=== PATIENT | female | born 1975 | race Caucasian/White ===

== ENCOUNTER 2025-01-02 19:25 | Emergency (ER) | payer BC, SELFPAY ==
[2025-01-02 19:27] VITALS: BP 128/90
--- NOTE | 2025-01-02 19:48 | ED.GENMED ---
History of Present Illness
General
Chief Complaint: Abdominal Pain
Source: patient
Exam Limitations: none
Time Seen by Provider: 01/02/25 19:31
Nursing documentation reviewed up to this point in time: agreed with
History of Present Illness
History of Present Illness:
Patient presents to ED for an evaluation after seeing blood with urination over the past 6 days. Shortly after seeing blood, patient also started having 'stomach bug' symptoms, similar to multiple for members, consisting of multiple vomiting and
diarrhea episodes. Patient was evaluated by her primary care physician and urine study has been ordered. Unfortunately, patient has been experiencing persistent left-sided abdominal pain, prompting evaluation ED. Denies back pain. Denies
difficulty with urination. Denies pain with urination. Denies fever or chills. Patient states that her GI symptoms have mostly resolved. Denies family history of kidney stones. Patient has had blood with urination in the past, treated with
antibiotics for UTI.
Past History
Past History
ED Past Surgical History: Gynecological
Review of Systems
Review of Systems
Allergies reviewed?: Yes
All Other Systems: ROS reviewed and negative except as documented in HPI and ROS
Constitutional: Reports no symptoms; Denies fever or chills
Respiratory: Reports no symptoms
Cardiac: Reports no symptoms
ABD/GI: Reports abdominal pain, vomiting and diarrhea
: Reports bleeding; Denies dysuria, frequency, flank pain or difficulty voiding
Musculoskeletal: Reports no symptoms; Denies back pain
Skin: Reports no symptoms
Neurological: Reports no symptoms
Phy Exam
Physical Exam
Physical Exam:
Physical Exam
General: no apparent distress, not acutely ill. afebrile.
Head: nc/at. eomi
Neck: supple. normal range of motion.
Heart: s1/s2 regular rate and rhythm, no murmur.
Lungs: no acute respiratory distress. clear bilaterally
Abdomen: normal bowel sounds. not tender. no distention
Neuro: alert and oriented. no focal neurological deficits
Skin: no rash
Psychiatric: well kept. interactive and cooperative
Extremities: no edema. no calf tenderness.
Course
Orders/Labs/Results
Orders:
Orders
01/02/25 19:48
0.9% Sodium Chloride 1000 ml [Nss] 1,000 ml IV BOLUS
Ketorolac [Toradol] 15 mg IV NOW STA
Test Result ONCE
01/02/25 19:55
CT Abd/pel Without Iv Or Oral Urgent
Comment:
Reason For Exam: LLQ/flank pain w hematuria
Basic Metabolic Panel Urgent
Beta HCG Quantitative Urgent
Comment: ADD ON
Complete Blood Count/With Diff Urgent
HCG, Serum Qualitative Screen Urgent
Urinalysis Reflex To Culture Urgent
Date Specimen was Collected: 01/02/25
Time Specimen was Collected: 19:51
Urine Microscopic Reflex Cult Urgent
Urine Culture Urgent
AMAURY Source: U
Specimen Description:
Date Specimen was Collected: 01/02/25
Time Specimen was Collected: 19:51
01/02/25 20:48
Add On- LAB Urgent
Tests Added?: serum quantitative
01/02/25 21:42
Cefdinir [Omnicef] 300 mg PO NOW STA
Abnormal Lab Results
01/02/25
19:55
MPV 10.6 H fL
(7.4-10.4)
Absolute Lymphs (auto) 0.7 L 10^3/uL
(1.2-3.4)
Neutrophils % 78.6 H %
(42.2-75.2)
Lymphocytes % 10.6 L %
(20.5-51.1)
Monocytes % 9.9 H %
(1.7-9.3)
BUN 22 H mg/dl
(7-17)
Glucose 131 H mg/dl
(70-99)
Urine Ketones 3+ A
(Negative)
Ur Occult Blood Reflex 4+ A
(Negative)
Leukocyte Esterase Rfl 2+ A
(Negative)
Urine RBC 7-10 A /HPF
(0-2)
Urine WBC (Reflex) 26-30 A /HPF
(0-5)
Urine Bacteria (Reflex) Many A
(Negative)
Urine Albumin (Reflex) 2+ A
(Neg - Trace)
01/02/25 19:55
01/02/25 19:55
Vital Signs
Initial and Last Documented VS:
Initial Vital Signs
Temp Pulse Resp BP Pulse Ox
98.4 F 85 20 128/90 95
01/02/25 19:27 01/02/25 19:27 01/02/25 19:27 01/02/25 19:27 01/02/25 19:27
Last Documented Vital Signs
Temp Pulse Resp BP Pulse Ox
98.4 F 76 14 122/80 98
01/02/25 19:27 01/02/25 21:48 01/02/25 21:48 01/02/25 21:48 01/02/25 21:48
MDM/Problems Addressed
MDM/Problems Addressed:
CT abdomen pelvis report reviewed and discussed with patient.
Patient will be started on Omnicef, for likely UTI as etiology for her hematuria. Nonspecific abdominal pain, likely multifactorial, including UTI along with recent GI infection. Advised PCP follow-up as an outpatient, or return to ED with
worsening symptoms, i.e. fever/worsening pain/vomiting.
*Critical Care Note
Total Time (30-74mins, 75-104mins- exclusive of procedures): Not Applicable
ED Attending Note
-
Portions of this chart may have been created with voice recognition software.� Occasional wrong word or��sound alike� substitutions may have occurred due to the inherent limitations of voice recognition software.
Discharge Plan
Departure
Patient Disposition: Home (Routine Discharge)
Date of Disposition: 01/02/25
Time of Disposition: 21:43
Patient with high blood pressure during this ER visit?: Yes
Discharge Problem:
UTI (urinary tract infection)
Instructions: Urinary tract infections in adults
Prescriptions:
New
cefdinir 300 mg capsule
300 mg PO BID Qty: 13 0RF
No Action
Excedrin Tension Headache 500-65 mg Tablet
2 tab PO Q8HPRN PRN (Reason: head ache)
gabapentin 300 mg Capsule
300 mg PO BIDPRN PRN (Reason: neck pain)
cholecalciferol (vitamin D3) [Vitamin D3] 25 mcg (1,000 unit) Tablet
50 mcg PO DAILY
ibuprofen 200 mg tablet
400 mg PO Q6HPRN PRN (Reason: mild pain)
estradiol 0.05 mg/24 hr Patch Semiweekly
1 patch TRANSDERMAL MOTH
Referrals:
Lola Cohen MD [Family Provider] -
Activity Restrictions/Additional Instructions:
As discussed, please follow-up with your primary care physician for further evaluation and treatment. Please return to ED with worsening symptoms, i.e. fever/worsening pain/vomiting/inability to urinate. Your prescription has been sent
electronically to [facility] pharmacy in [place].
Interventions
Interventions:
*Risk Screen - Suicide Last Done: 01/02/25 19:27
*General Assessment Last Done: 01/02/25 19:27
*Neglect/Abuse Screening Last Done: 01/02/25 19:27
*ED- Fall Risk Assessment Last Done: 01/02/25 21:54
*Nursing Disposition Last Done: 01/02/25 21:54
DC-Eqywal-Atngzwybjz Assessment Last Done: 01/02/25 20:34
Discharge Date and Time
Discharge Date/Time: 01/02/25 22:02
Print Language: KOSOVAN
[2025-01-02] MEDS: NSS 1000 IV (19:52)
[2025-01-02] MEDS: TORADOL 15 MG IV (19:53)
[2025-01-02 20:24] LABS: % Basophils 0.2 % (0-2); % Eosinophils 0.5 % (0-6); % Immature Granulocytes 0.2 % (0-0.5); % Lymphocytes 10.6 % (20.5-51.1); % Monocytes 9.9 % (1.7-9.3); % Neutrophils 78.6 % (42.2-75.2); Absolute Lymphocytes 0.7 10^3/uL (1.2-3.4); Absolute Monocytes 0.6 10^3/uL (0.1-0.6); Hematocrit 40.1 % (37.0-47.0); Hemoglobin 13.5 g/dL (12.0-16.0); Mean Corp Hgb Conc. 33.7 g/dL (33.0-37.0); Mean Corpuscular Hgb 29.9 pg (27.0-31.0); Mean Corpuscular Volume 88.7 fL (81.0-99.0); Mean Platelet Volume 10.6 fL (7.4-10.4); Nucleated Red Blood Cells % 0 %; Platelet Count 188 10^3/uL (130-400); Red Blood Cell Count 4.52 10^6/uL (4.20-5.40); Red Cell Dist. Width 13.8 % (11.5-14.5); White Blood Cell Count 6.4 10^3/uL (4.8-10.8)
[2025-01-02 20:25] LABS: Urine Albumin 2+ (Neg - Trace); Urine Bilirubin Negative (Negative); Urine Character Slightly Cloudy (Clear); Urine Color Yellow; Urine Glucose Negative (Negative); Urine Ketone 3+ (Negative); Urine Leukocyte 2+ (Negative); Urine Nitrite Negative (Negative); Urine Occult Blood 4+ (Negative); Urine Urobilinogen Negative (Neg - 1+)
[2025-01-02 20:28] LABS: Blood Urea Nitrogen 22 mg/dl (7-17); Carbon Dioxide 25 mmol/L (22-30); Chloride 101 mmol/L (98-107); Glucose 131 mg/dl (70-99); Potassium 3.6 mmol/L (3.5-5.1); Sodium 135 mmol/L (135-145); eGFR > 60.00
[2025-01-02 20:32] LABS: Urine Mucus Moderate
[2025-01-02 20:33] LABS: Urine Calcium Oxalate Crystals Present
[2025-01-02 20:34] LABS: Urine Bacteria Many (Negative); Urine White Cell 26-30 /HPF (0-5)
[2025-01-02 20:47] LABS: HCG, Serum Qualitative Screen Positive
[2025-01-02 21:21] LABS: Beta HCG Quantitative 5.74 mIU/ml
[2025-01-02] MEDS: OMNICEF 300 MG PO (21:46)
[2025-01-02 21:48] VITALS: BP 122/80
== END 2025-01-02 22:02 | disposition home or self-care (01) ==
LOC: EMR 19:25
PROVIDERS: EMERGENCY PHYSICIAN Emergency Medicine; FAMILY PHYSICIAN Internal Medicine
DX: N39.0 Urinary tract infection, site not specified (principal); R10.9 Unspecified abdominal pain
CPT/HCPCS: 96374; 96361; 99284; 74176; 80048; 81003; 81015; 84702; 84703; 85025; 87086

== ENCOUNTER 2025-01-04 05:50 | Inpatient (IN) | payer BC, SELFPAY ==
[2025-01-04] VITALS (9 sets, daily range): BP systolic 100–126; BP diastolic 62–77; BMI 19.7; BMI 19.8
[2025-01-04 02:28] LABS: % Basophils 0.3 % (0-2); % Eosinophils 0.1 % (0-6); % Immature Granulocytes 0.3 % (0-0.5); % Lymphocytes 11.4 % (20.5-51.1); % Monocytes 10.3 % (1.7-9.3); % Neutrophils 77.6 % (42.2-75.2); Absolute Lymphocytes 0.8 10^3/uL (1.2-3.4); Absolute Monocytes 0.7 10^3/uL (0.1-0.6); Absolute Neutrophils 5.3 10^3/uL (1.4-6.5); Hematocrit 36.8 % (37.0-47.0); Hemoglobin 12.5 g/dL (12.0-16.0); Mean Corpuscular Hgb 30.3 pg (27.0-31.0); Mean Corpuscular Volume 89.3 fL (81.0-99.0); Mean Platelet Volume 10.5 fL (7.4-10.4); Nucleated Red Blood Cells % 0 %; Platelet Count 163 10^3/uL (130-400); Red Blood Cell Count 4.12 10^6/uL (4.20-5.40); Red Cell Dist. Width 13.8 % (11.5-14.5); White Blood Cell Count 6.9 10^3/uL (4.8-10.8)
[2025-01-04 02:47] LABS: Lactic Acid 0.7 mmol/L (0.7-2.0)
[2025-01-04 03:13] LABS: ALT (SGPT) 49 U/L (0-35); AST (SGOT) 78 U/L (14-36); Albumin 3.8 g/dl (3.5-5.0); Alkaline Phosphatase 77 U/L (38-126); Blood Urea Nitrogen 17 mg/dl (7-17); Calcium 8.7 mg/dl (8.4-10.2); Carbon Dioxide 26 mmol/L (22-30); Chloride 104 mmol/L (98-107); Glucose 121 mg/dl (70-99); Potassium 4.3 mmol/L (3.5-5.1); Sodium 138 mmol/L (135-145); Total Bilirubin 0.8 mg/dl (0.2-1.3); Total Protein 6.6 g/dl (6.3-8.2); eGFR > 60.00
[2025-01-04 04:00] LABS: Urine Albumin 2+ (Neg - Trace); Urine Bilirubin Negative (Negative); Urine Character Slightly Cloudy (Clear); Urine Color Yellow; Urine Glucose Negative (Negative); Urine Ketone Negative (Negative); Urine Leukocyte 3+ (Negative); Urine Nitrite Negative (Negative); Urine Occult Blood 4+ (Negative); Urine Urobilinogen Negative (Neg - 1+)
[2025-01-04 04:27] LABS: Urine Red Blood Cell 21-25 /HPF (0-2); Urine Squamous Cell >30 /LPF (Few); Urine White Cell >100 /HPF (0-5)
[2025-01-04 04:28] LABS: Urine Bacteria Moderate (Negative)
--- NOTE | 2025-01-04 05:08 | ED.GENMED ---
History of Present Illness
General
Chief Complaint: Urinary Symptoms
Source: previous hospital records (ED visit just 2 days ago, left-sided abdominal and flank pain, 6-day history of hematuria. Found to have UTI, concern for pyelonephritis. Discharged to home with prescription for cefdinir)
Exam Limitations: none
Time Seen by Provider: 01/04/25 04:47
Nursing documentation reviewed up to this point in time: agreed with
History of Present Illness
History of Present Illness:
This is a 49-year-old woman with no significant past medical history evaluated in this ED 2 days ago with complaints of 6-day history of hematuria and also noted left-sided abdominal, left flank pain. Unremarkable laboratory studies. Urinalysis
suspicious for UTI.
CT abdomen pelvis showing bilateral small nephrolithiasis but no hydronephrosis, no perinephric stranding.
She returns tonight with complaints of acute onset of fever this evening with Tmax of 102 �F. She does continue with some left flank pain believes it has been mildly improved. No diarrhea, no nausea nor vomiting. She took ibuprofen at home.
Past History
Past History
ED Past Surgical History: Gynecological
Phy Exam
Physical Exam
Physical Exam:
GENERAL: 49-year-old woman appears her stated age, awake and alert, pleasant, appears in no acute distress.
EYE: anicteric
NECK: Supple, nontender, no meningismus, no significant adenopathy.
ENT: oral mucosa is moist. No rhinorrhea.
CARDIAC: Regular rate and rhythm. no murmur.
LUNGS: Clear breath sounds bilaterally, no acute respiratory distress, no wheezes/rales/rhonchi
ABDOMEN: Soft, nondistended, without focal tenderness, no r/g, moderate left CVA tenderness with percussion. Normoactive BS.
NEUROLOGICAL: Alert and oriented x3, no focal neuro deficits. Gait is steady.
SKIN: Warm and dry, normal color, skin intact. No rash.
MUSCULOSKELETAL: No C/C/E. peripheral pulses are full and equal b/l. No palpable tenderness.
PSYCH: Normal and appropriate interaction.
Course
Orders/Labs/Results
Orders:
Orders
01/04/25 02:15
Complete Blood Count/With Diff Urgent
Comprehensive Metabolic Panel Urgent
Lactic Acid Urgent
Blood Culture Urgent
AMAURY Source: Blood/Venous
Specimen Description:
Date Specimen was Collected: 01/04/25
Time Specimen was Collected: 01:59
01/04/25 03:46
Urinalysis Reflex To Culture Urgent
Date Specimen was Collected: 01/04/25
Time Specimen was Collected: 01:59
Urine Microscopic Reflex Cult Urgent
Urine Culture Urgent
AMAURY Source: U
Specimen Description:
Date Specimen was Collected: 01/04/25
Time Specimen was Collected: 01:59
01/04/25 05:00
0.9% Sodium Chloride 1000 ml [Nss] 1,000 ml IV BOLUS
01/04/25 05:08
LevoFLOXacin 500 MG/100 ML [Levaquin] 500 mg in 100 ml IV NOW
01/04/25 05:34
Admit/Transfer Patient As Directed
Co-Sign Provider:
Level of Care: Inpatient admission
Assign to:: Medical/Surgical
Physician / Group: Leighton
Diagnosis: Pyelonephritis
Reason for Hospitalization: Pyelonephritis
Expected length of stay greater than two midnights?: Yes
ELOS- Estimated Length of Stay in days: 2
I certify the patient meets the requirements for IP care: Yes
PRN Pain Medication Management As Directed
May give lesser potent ordered pain med per pt: Yes
preference::
Protocol:: Medication orders for pain may be administered in a
manner that supports deferring to patient preference
when the pt is:
- Requesting an ordered lesser potent pain medication.
Least to most potent pain medications are defined
as: acetaminophen < NSAID < tramadol < opioids
(morphine, oxycodone, hydromorphone).
- Requesting a lesser dose of the same medication IF
ORDERED.
- Requesting a less intrusive route of administration
if both routes are prescribed by the provider (PO <
IV).
01/04/25 05:35
Code Status As Directed
Resuscitation Status: Full Code
Abnormal Lab Results
01/04/25 01/04/25
02:15 03:46
RBC 4.12 L 10^6/uL
(4.20-5.40)
Hct 36.8 L %
(37.0-47.0)
MPV 10.5 H fL
(7.4-10.4)
Absolute Lymphs (auto) 0.8 L 10^3/uL
(1.2-3.4)
Absolute Monos (auto) 0.7 H 10^3/uL
(0.1-0.6)
Neutrophils % 77.6 H %
(42.2-75.2)
Lymphocytes % 11.4 L %
(20.5-51.1)
Monocytes % 10.3 H %
(1.7-9.3)
Glucose 121 H mg/dl
(70-99)
AST 78 H U/L
(14-36)
ALT 49 H U/L
(0-35)
Ur Occult Blood Reflex 4+ A
(Negative)
Leukocyte Esterase Rfl 3+ A
(Negative)
Urine RBC 21-25 A /HPF
(0-2)
Urine WBC (Reflex) >100 A /HPF
(0-5)
Urine Bacteria (Reflex) Moderate A
(Negative)
Urine Albumin (Reflex) 2+ A
(Neg - Trace)
01/04/25 02:15
01/04/25 02:15
Vital Signs
Initial and Last Documented VS:
Initial Vital Signs
Temp Pulse Resp BP Pulse Ox
99.4 F 79 20 109/76 98
01/04/25 01:48 01/04/25 01:48 01/04/25 01:48 01/04/25 01:48 01/04/25 01:48
Last Documented Vital Signs
Temp Pulse Resp BP Pulse Ox
98.7 F 63 18 118/76 98
01/04/25 03:46 01/04/25 03:46 01/04/25 03:46 01/04/25 06:12 01/04/25 06:16
MDM/Problems Addressed
Differential Diagnosis Includes:
Significant concern for continued pyelonephritis and at this point has failed outpatient antibiotics.
With fever concern for bacteremia/sepsis.
Thus far labs are unremarkable, reassuring with normal white blood cell count, normal lactic acid. Normal renal function.
LFTs minimally elevated, no previous LFTs to compare. Reassuring that she has had no right upper quadrant tenderness.
Urinalysis although contaminated specimen continues to show moderate bacteria and now has greater than 100 WBCs, concerning for UTI and with continued left flank pain/moderate CVA tenderness on the left concern for continued pyelonephritis.
Blood cultures are pending.
Urine culture from January 02 is pending as well.
Will plan to admit to hospitalist service, initiate IV fluids and will initiate IV antibiotics. Due to concern for failure of third-generation cephalosporin, will initiate IV Levaquin.
*Pulse Oximetry
Patient hypoxic: no
*Critical Care Note
Total Time (30-74mins, 75-104mins- exclusive of procedures): Not Applicable
ED Attending Note
-
Portions of this chart may have been created with voice recognition software.� Occasional wrong word or��sound alike� substitutions may have occurred due to the inherent limitations of voice recognition software.
Discharge Plan
Departure
Patient Disposition: Admit
Date of Disposition: 01/04/25
Time of Disposition: 05:16
Admit to: Med/Surg
Admit to doctor: Leighton
Presentation/result/management discussed w/ accepting MD/DO: Hospitalist
Condition: Fair
Discharge Problem:
Acute pyelonephritis, Fever rule out sepsis
Interventions
Interventions:
*Risk Screen - Suicide Last Done: 01/04/25 01:48
*General Assessment Last Done: 01/04/25 01:48
*Neglect/Abuse Screening Last Done: 01/04/25 01:48
*ED- Fall Risk Assessment Last Done: 01/04/25 01:48
*ED COVID-19 Vaccine History Last Done: 01/04/25 01:48
ED-Female Genitourinary Assessment Last Done: 01/04/25 03:46
[2025-01-04] MEDS: NSS 1000 IV ×3 (05:13→18:10)
[2025-01-04] MEDS: LEVAQUIN 100 IV (05:14)
--- NOTE | 2025-01-04 05:37 | HPS.HSE ---
Family Physician
-
Family Physician: Lola Cohen
Chief Complaint
-
Fever, Flank Pain
History of Present Illness
Patient is a 49y F with no significant PMH who presents to ED complaining of flank pain and fever. Patient states that she started with dysuria and bloody urine about one week ago. Since that time, she (and multiple family members) developed GI
illness with N/V/D. Once this improved, patient noted persistent complaints and she presented to the ED here on 01/02/25. She was diagnosed with UTI and discharged on cefdinir which she has taken as prescribed.
This evening, patient noted increased pain across the back - L > R - and fever at home to 102 degrees. She returned to the ED for further evaluation.
Patient took Motrin at home prior to presentation and is afebrile here on triage.
She had CT of the A/P done on 01/02 which showed no ureteral stone / obstruction.
Medical History
Past Medical History
Past Medical History: Reports Other
Additional Past Medical History:
Cervical DDD
Past Surgical History: Reports Other
Additional Past Surgical History:
Hysterectomy
Appendectomy
Foot Surgery
Social History
Tobacco: Non-smoker
Alcohol: None
Drug: None
Personal:
Living: With Family
Family History
Family History: Not pertinent
Allergies / Home Medications
Allergies reflects when Allergies were last updated in [employer] [facility].
Home Medications with original date entered in [employer]
Allergy/Medication List:
Allergies
Allergy/AdvReac Type Severity Reaction Status Date / Time
No Known Allergies Allergy Verified 01/04/25 01:48
Home Medications
cefdinir 300 mg capsule 300 mg PO BID #13 caps 01/02/25
estradiol 0.05 mg/24 hr semiweekly transdermal patch 1 patch transdermal MOTH 01/02/25
gabapentin 300 mg capsule 300 mg PO BIDPRN PRN neck pain 01/02/25
Review of Systems
-
History Source: Patient
A 12 point ROS was completed and negative except as noted: Yes
Constitutional: Reports Fever, Fatigue and Chills
EENT: Denies Sore Throat
Respiratory: Denies Cough or Trouble Breathing
Cardiac: Denies Chest Pain or Palpitations
Abdomen/GI: Reports Nausea; Denies Abdominal Pain, Vomiting or Diarrhea
: Reports Dysuria, Flank Pain and Bleeding; Denies Frequency
Musculoskeletal: Denies Joint Pain or Edema
Neurological: Denies Dizzy or Headache
Psych: Denies Depression or Anxiety
Physical Exam
Vital Signs
Vital Signs
Temp Pulse Resp BP Pulse Ox
98.7 F 63 18 100/68 98
01/04/25 03:46 01/04/25 03:46 01/04/25 03:46 01/04/25 04:00 01/04/25 04:45
Physical Exam
General: Other (49y F in no acute distress.)
HEENT: Moist mucous membranes and PERRLA
Respiratory: Clear; No Wheezes, Rales or Rhonchi
Cardiac: S1/S2 and Regular Rhythm; No Murmur
GI: Other (Mildly tender on the L. No rebound / guarding. Normal BS.)
Genito-urinary: Costovertebral angle tend (bilateral - L > R.)
Musculoskeletal: No Clubbing, No Cyanosis and No Edema
Neuro: AO x 3
Laboratory Results
-
01/04/25 02:15
01/04/25 02:15
Laboratory Results
Lactic Acid 0.7 mmol/L (0.7-2.0) 01/04/25 02:15
Total Bilirubin 0.8 mg/dl (0.2-1.3) 01/04/25 02:15
AST 78 U/L (14-36) H 01/04/25 02:15
ALT 49 U/L (0-35) H 01/04/25 02:15
Alkaline Phosphatase 77 U/L (38-126) 01/04/25 02:15
Impression/Plan
-
A/P: Patient is a 49y F with no significant PMH who presents to ED complaining of fever and flank pain.
Pyelonephritis
- Admit for further evaluation and treatment.
- Patient presents with worsening flank pain and new fever (102 at home) despite outpatient cefdinir.
- Continue levofloxacin for now pending culture data (sent 01/02 during initial ED visit).
- Supportive care including IVFs, antiemetics, antipyretics, etc.
- IV abx until afebrile x 24 hours then return to PO to complete course.
- Follow for clinical improvement.
Cervical DDD
- Stable. Continue PRN gabapentin.
DVT Prophylaxis: Lovenox
Code Status: Full
[2025-01-04] MEDS: TYLENOL 650 MG PO ×3 (08:13→20:37)
[2025-01-04] MEDS: COMPAZINE 5 MG IV ×2 (08:14→20:36)
--- NOTE | 2025-01-04 09:30 | PTCARENOTE ---
Pt was received from ED. Pt ambulated to the room. Pt reporting bilateral 6/10 low back pain L>R. Medicated with Tylenol. Pt also nauseous, medicated with Compazine. About 1hr later pain has improved and pt is not nauseous anymore. Resting in bed.
[2025-01-04] MEDS: LOVENOX 40 MG SC (17:35)
[2025-01-05] MEDS: TYLENOL 650 MG PO ×2 (03:03→21:01)
[2025-01-05] MEDS: LEVAQUIN 100 IV (05:16)
[2025-01-05 06:03] LABS: Hematocrit 30.9 % (37.0-47.0); Hemoglobin 10.6 g/dL (12.0-16.0); Mean Corp Hgb Conc. 34.3 g/dL (33.0-37.0); Mean Corpuscular Hgb 30.3 pg (27.0-31.0); Mean Corpuscular Volume 88.3 fL (81.0-99.0); Mean Platelet Volume 11.3 fL (7.4-10.4); Platelet Count 151 10^3/uL (130-400); Red Cell Dist. Width 13.9 % (11.5-14.5); White Blood Cell Count 4.7 10^3/uL (4.8-10.8)
[2025-01-05 06:38] LABS: Blood Urea Nitrogen 7 mg/dl (7-17); Calcium 8.2 mg/dl (8.4-10.2); Carbon Dioxide 21 mmol/L (22-30); Chloride 107 mmol/L (98-107); Estimated Creatinine Clearance 95 ml/min; Glucose 90 mg/dl (70-99); Potassium 3.5 mmol/L (3.5-5.1); Sodium 137 mmol/L (135-145); eGFR > 60.00
[2025-01-05 07:49] VITALS: BP 128/69
[2025-01-05] MEDS: NSS 1000 IV (08:06)
--- NOTE | 2025-01-05 13:19 | W.PN.HOSP.TC ---
Today's Communication/Plan
-
maintain on iv abx
possible d/c tomorrow
Assessment / Plan
Assessment / Plan
Pyelonephritis
- Patient presents with worsening flank pain and new fever (102 at home).
- Urine culture growing Proteus mirabilis, susceptibilities reviewed
- Maintain on IV levofloxacin .
- Supportive care including IVFs, antiemetics, antipyretics, etc.
Cervical DDD
- Stable. Continue PRN gabapentin.
DVT Prophylaxis: Lovenox
Code Status: Full
Anticipated Discharge: Within 24 hours
Subjective/Interval History
-
Date of Service: January 05, 2025
Flank pain is better
no vomiting episode
fever last evening
Objective Data
-
Labs:
Laboratory Results
01/05/25
04:57
WBC 4.7 L
Hgb 10.6 L
Hct 30.9 L
Plt Count 151
Sodium 137
Potassium 3.5
Chloride 107
Carbon Dioxide 21 L
BUN 7
Creatinine 0.6
Glucose 90
Calcium 8.2 L
Vital Signs:
Vital Signs
Temp Pulse Resp BP Pulse Ox
98.1 F 57 16 128/69 99
01/05/25 07:49 01/05/25 07:49 01/05/25 07:49 01/05/25 07:49 01/05/25 07:49
I&O
01/04/25 01/05/25 01/06/25
06:59 06:59 06:59
Intake Total 2304
Balance 2304
Review of Systems
-
Respiratory: Reports No Symptoms
Cardiac: Reports No Symptoms
Abdomen/GI: Reports Abdominal Pain; Denies Nausea or Vomiting
Physical Exam
-
General: No Apparent Distress and Comfortable
HEENT: Negative Oxygen
Respiratory: Clear to Auscultation
Cardiac: Regular Rhythm and S1/S2; Negative Murmur or Rub
GI: Soft, Nontender and Nondistended
Musculoskeletal: No Edema
Neuro: Awake, Alert, Oriented, No Motor Deficits and Nonfocal/Grossly Intact
Psych: Calm
--- NOTE | 2025-01-05 14:57 | CM ---
chemical manager reviewed patient's chart and met with patient and patient lives with her spouse in a 2 story home, patient is independent with adl's and ambulation, no dme, patient drives, home when stable no needs.
PCP: Lola Lizama
Pharmacy [facility] in [place]
Plan; Home no needs.
[2025-01-05 15:20] VITALS: BP 131/79
[2025-01-05] MEDS: LOVENOX 40 MG SC (17:14)
[2025-01-05] MEDS: NEURONTIN 300 MG PO (17:36)
[2025-01-05 23:27] VITALS: BP 123/78
[2025-01-06] MEDS: TYLENOL 650 MG PO ×2 (04:37→08:44)
[2025-01-06] MEDS: LEVAQUIN 100 IV (05:14)
[2025-01-06 07:47] VITALS: BP 134/75
--- NOTE | 2025-01-06 10:47 | W.PN.HOSP.TC ---
Today's Communication/Plan
-
po abx
Assessment / Plan
Assessment / Plan
Pyelonephritis
- Patient presents with worsening flank pain and new fever (102 at home).
- Urine culture growing Proteus mirabilis, susceptibilities reviewed
- Maintain on IV levofloxacin and switch to po augmentin.
- Supportive care including IVFs, antiemetics, antipyretics, etc.
Cervical DDD
- Stable. Continue PRN gabapentin.
DVT Prophylaxis: Lovenox
Code Status: Full
More than 30 minutes spent in discharge including
Final examination of the patient
Summarizing hospital stay
Instructions for continuing care to all relevant caregivers
Preparation of discharge records, prescriptions, and referral forms
Total time spent (in minutes): 52
Anticipated Discharge: Today
Subjective/Interval History
-
Date of Service: January 06, 2025
denies flank pain
feeling better
afebrile
Objective Data
-
Vital Signs:
Vital Signs
Temp Pulse Resp BP Pulse Ox
98.4 F 55 18 134/75 100
01/06/25 07:47 01/06/25 07:47 01/06/25 07:47 01/06/25 07:47 01/06/25 07:47
I&O
01/05/25 01/06/25 01/07/25
06:59 06:59 06:59
Intake Total 2305 / 2305 780 / 780
Balance 2305 / 2305 780 / 780
Physical Exam
-
General: No Apparent Distress and Comfortable
HEENT: Negative Oxygen
Respiratory: Clear to Auscultation
Cardiac: Regular Rhythm and S1/S2; Negative Murmur or Rub
GI: Soft, Nontender, Nondistended and Normal Bowel Sounds
Genito-urinary: No Costovertebral Tender
Musculoskeletal: No Edema
Neuro: Awake, Alert, Oriented, No Motor Deficits and Nonfocal/Grossly Intact
Psych: Calm
--- NOTE | 2025-01-06 10:50 | W.DCSUMMARY ---
Discharge Summary
Discharge Data
Date of Admission: 01/04/25
Date of Discharge: 01/06/25
-
Pending Results: No
Hospital Course
49y F with no significant PMH who presents to ED complaining of flank pain and fever. Patient states that she started with dysuria and bloody urine about one week ago. Since that time, she (and multiple family members) developed GI illness with
N/V/D. Once this improved, patient noted persistent complaints and she presented to the ED here on 01/02/25. She was diagnosed with UTI and discharged on cefdinir which she has taken as prescribed. She took 3 tablets of Omnicef. Patient with
persistent flank pain and came to the ER. States of high fevers at home. Patient initial urine culture resulted. Patient was started on Levaquin. Patient pain improved hematuria resolved. Patient underwent CT abdomen pelvis 01/02 Bilateral small
nephroliths as well as tiny medullary calcifications, compatible with medullary nephrocalcinosis. No evidence for ureteral calculus bilaterally. Mild fatty infiltration of the liver. Status post appendectomy. No evidence for bowel obstruction or
free intraperitoneal air. Patient urine culture with Klebsiella with kern sensitivity. Patient will be transitioned to p.o. Augmentin. Patient was tolerating diet. Patient without any lightheaded and dizziness. Patient was afebrile. Patient be
discharged home and she was agreeable and amenable discharge planning.
Discharge Plan
-
Patient Disposition: Home (Routine Discharge)
Discharge Diagnosis/Procedures: Pyelonephritis
Nausea
Condition: Good
Diet: Regular
Activity: As tolerated
Driving Restrictions: As prior to admission
Referrals:
Lola Cohen MD [Family Provider] - in less than 1 week
Prescriptions:
New
amoxicillin-pot clavulanate 875-125 mg tablet
1 tab PO BID Qty: 22 0RF
Visbiome 112.5 billion cell capsule
1 cap PO DAILY Qty: 14 0RF
Continued
gabapentin 300 mg Capsule
300 mg PO BIDPRN PRN (Reason: neck pain)
estradiol 0.05 mg/24 hr Patch Semiweekly
1 patch TRANSDERMAL MOTH
Discontinued
cefdinir 300 mg capsule
300 mg PO BID Qty: 13 0RF
Discharge Orders:
Discharge Patient (As Directed); Ordered 01/06/25
Ordered By: Bruce Johnston
Discharge Date and Time
Discharge Date/Time: 01/06/25 12:40
Print Language: ARGENTINE
--- NOTE | 2025-01-06 11:31 | CM ---
Patient seen bedside.
Denies home care needs.
Plan: home no needs.
[2025-01-06 11:43] VITALS: BP 140/81
== END 2025-01-06 12:40 | disposition home or self-care (01) | DRG 690 ==
LOC: 4 EAST ACU 05:50
PROVIDERS: ADMITTING PHYSICIAN Hospitalist; ATTENDING PHYSICIAN Hospitalist; EMERGENCY PHYSICIAN Emergency Medicine; FAMILY PHYSICIAN Internal Medicine
DX: N10 Acute pyelonephritis (principal); B96.1 Klebsiella pneumoniae [K. pneumoniae] as the cause of diseases classified elsewhere; K76.0 Fatty (change of) liver, not elsewhere classified; M50.30 Other cervical disc degeneration, unspecified cervical region; N20.0 Calculus of kidney
CPT/HCPCS: 80048; 80053; 81003; 81015; 83605; 85025; 85027; 87040; 87086; 96374; 99285